=== PATIENT | female | born 1955 | race Caucasian/White ===

== ENCOUNTER 2018-12-12 13:35 | Observation (INO) | payer OTHER ==
[2018-12-12] MEDS ORDERED: ASPIRIN 81 MG PO STA (14:23)
--- NOTE | 2018-12-12 14:39 | ED ---
General Adult HPI - General Chief complaint: Seizure Stated complaint: Seizure Time Seen by Provider: 12/12/18 13:40 Source: patient, EMS, RN notes reviewed Mode of arrival: EMS Limitations: no limitations, altered mental status - History of Present Illness Initial comments: This is a 63-year-old female who presents emergency Department with a past [facility] history of cardiac disease and has a pacemaker defibrillator. Patient was at the pharmacy when she passed out the states states prior to her passing out she shook a little bit for a few seconds but then after that was not shaking. He wasn't sure if that shaking indicated a seizure but she has no seizure history. Patient currently complains of chest pressure no shortness of breath or palpitations. Patient denies any diaphoretic episode. Patient denies currently being lightheaded or dizzy. Patient states prior to the event she was not lightheaded. Patient did not hit her head she was set down gently according to the . - Related Data Home Medications Medication Instructions Recorded Confirmed Atorvastatin [Lipitor] 40 mg PO DAILY 12/12/18 12/12/18 Famotidine [Pepcid] 20 mg PO BID 12/12/18 12/12/18 Furosemide [Lasix] 20 mg PO DAILY 12/12/18 12/12/18 Insulin Glargine,Hum.rec.anlog 65 unit SQ HS 12/12/18 12/12/18 [Basaglar Kwikpen U-100] Insulin Lispro [Admelog Solostar] 10 unit SQ AC-TID 12/12/18 12/12/18 Lisinopril [Zestril] 10 mg PO DAILY 12/12/18 12/12/18 Metoprolol Succinate (ER) [Toprol 50 mg PO DAILY 12/12/18 12/12/18 Xl] Sertraline HCl [Zoloft] 50 mg PO DAILY 12/12/18 12/12/18 Allergies Allergy/AdvReac Type Severity Reaction Status Date / Time No Known Allergies Allergy Verified 12/12/18 13:45 Review of Systems ROS Statement: Those systems with pertinent positive or pertinent negative responses have been documented in the HPI. ROS Other: All systems not noted in ROS Statement are negative. Past Medical History Past Medical History: Diabetes Mellitus, Hypertension Additional Past Medical History / Comment(s): stroke, pt and pts very poor historian History of Any Multi-Drug Resistant Organisms: None Reported Past Surgical History: Tubal Ligation Smoking Status: Never smoker Past Alcohol Use History: None Reported Past Drug Use History: None Reported General Exam - General Exam Comments Initial Comments: GENERAL: Patient is well-developed and well-nourished. Patient is nontoxic and well- hydrated and is in mild distress. ENT: Neck is soft and supple. No significant lymphadenopathy is noted. Oropharynx is clear. Moist mucous membranes. Neck has full range of motion without eliciting any pain. EYES: The sclera were anicteric and conjunctiva were pink and moist. Extraocular movements were intact and pupils were equal round and reactive to light. Eyelids were unremarkable. PULMONARY: Unlabored respirations. Good breath sounds bilaterally. No audible rales rhonchi or wheezing was noted. CARDIOVASCULAR: There is a regular rate and rhythm without any murmurs gallops or rubs. ABDOMEN: Soft and nontender with normal bowel sounds. SKIN: Skin is clear with no lesions or rashes and otherwise unremarkable. NEUROLOGIC: Patient is alert and oriented x3. Cranial nerves II through XII are grossly intact. Motor and sensory are also intact. Normal speech, volume and content. Symmetrical smile. MUSCULOSKELETAL: Normal extremities with adequate strength and full range of motion. No lower extremity swelling or edema. No calf tenderness. LYMPHATICS: No significant lymphadenopathy is noted PSYCHIATRIC: Normal psychiatric evaluation. Limitations: no limitations, altered mental status Course Vital Signs 12/12/18 13:39 Temperature 98.9 F Pulse Rate 91 Respiratory 18 Rate Blood Pressure 160/77 O2 Sat by Pulse 95 Oximetry Medical Decision Making - Medical Decision Making EKG shows normal sinus rhythm at 69 bpm CA interval is 164 QRS 106 QT interval is 438 QTC is 469. There is no ST segment elevation or depression. CT of the brain shows no acute abnormality questionable mastoiditis however the patient has no pain in that area and even on palpation has no pain. CT of the chest shows no pulmonary embolism. I spoke with Dr. Steele he agreed to admit the patient admitted the patient wrote admitting orders. - Lab Data Result diagrams: 12/12/18 14:15 12/12/18 14:15 Lab Results 12/12/18 12/12/18 12/12/18 Range/Units 14:15 14:15 14:15 WBC 8.8 (3.8-10.6) k/uL RBC 4.16 (3.80-5.40) m/uL Hgb 13.1 (11.4-16.0) gm/dL Hct 38.8 (34.0-46.0) % MCV 93.2 (80.0-100.0) fL MCH 31.5 (25.0-35.0) pg MCHC 33.8 (31.0-37.0) g/dL RDW 13.5 (11.5-15.5) % Plt Count 230 (150-450) k/uL Neutrophils % 81 % Lymphocytes % 12 % Monocytes % 4 % Eosinophils % 2 % Basophils % 0 % Neutrophils # 7.1 (1.3-7.7) k/uL Lymphocytes # 1.0 (1.0-4.8) k/uL Monocytes # 0.4 (0-1.0) k/uL Eosinophils # 0.2 (0-0.7) k/uL Basophils # 0.0 (0-0.2) k/uL PT 10.7 (9.0-12.0) sec INR 1.0 (<1.2) APTT 20.6 L (22.0-30.0) sec D-Dimer 2.21 H (<0.60) mg/L FEU Sodium 138 (137-145) mmol/L Potassium 4.1 (3.5-5.1) mmol/L Chloride 102 (98-107) mmol/L Carbon Dioxide 21 L (22-30) mmol/L Anion Gap 15 mmol/L BUN 18 H (7-17) mg/dL Creatinine 0.86 (0.52-1.04) mg/dL Est GFR (CKD-EPI)AfAm 83 (>60 ml/min/1.73 sqM) Est GFR (CKD-EPI)NonAf 72 (>60 ml/min/1.73 sqM) Glucose 218 H (74-99) mg/dL Calcium 9.5 (8.4-10.2) mg/dL Magnesium 1.5 L (1.6-2.3) mg/dL Total Bilirubin 0.5 (0.2-1.3) mg/dL AST 44 H (14-36) U/L ALT 31 (9-52) U/L Alkaline Phosphatase 78 (38-126) U/L Troponin I (0.000-0.034) ng/mL NT-Pro-B Natriuret Pep pg/mL Total Protein 7.6 (6.3-8.2) g/dL Albumin 4.3 (3.5-5.0) g/dL 12/12/18 12/12/18 Range/Units 14:15 14:15 WBC (3.8-10.6) k/uL RBC (3.80-5.40) m/uL Hgb (11.4-16.0) gm/dL Hct (34.0-46.0) % MCV (80.0-100.0) fL MCH (25.0-35.0) pg MCHC (31.0-37.0) g/dL RDW (11.5-15.5) % Plt Count (150-450) k/uL Neutrophils % % Lymphocytes % % Monocytes % % Eosinophils % % Basophils % % Neutrophils # (1.3-7.7) k/uL Lymphocytes # (1.0-4.8) k/uL Monocytes # (0-1.0) k/uL Eosinophils # (0-0.7) k/uL Basophils # (0-0.2) k/uL PT (9.0-12.0) sec INR (<1.2) APTT (22.0-30.0) sec D-Dimer (<0.60) mg/L FEU Sodium (137-145) mmol/L Potassium (3.5-5.1) mmol/L Chloride (98-107) mmol/L Carbon Dioxide (22-30) mmol/L Anion Gap mmol/L BUN (7-17) mg/dL Creatinine (0.52-1.04) mg/dL Est GFR (CKD-EPI)AfAm (>60 ml/min/1.73 sqM) Est GFR (CKD-EPI)NonAf (>60 ml/min/1.73 sqM) Glucose (74-99) mg/dL Calcium (8.4-10.2) mg/dL Magnesium (1.6-2.3) mg/dL Total Bilirubin (0.2-1.3) mg/dL AST (14-36) U/L ALT (9-52) U/L Alkaline Phosphatase (38-126) U/L Troponin I <0.012 (0.000-0.034) ng/mL NT-Pro-B Natriuret Pep 160 pg/mL Total Protein (6.3-8.2) g/dL Albumin (3.5-5.0) g/dL Disposition Clinical Impression: Chest pain, Syncope and collapse Disposition: ADMITTED IP TO THIS HOSP Referrals: Mj Elizabeth MD [Primary Care Provider] - 1-2 days Time of Disposition: 16:28
[2018-12-12 14:45] LABS: Basophils % (A) 0 %; Eosinophils # (A) 0.2 k/uL (0-0.7); Eosinophils % (A) 2 %; HCT 38.8 % (34.0-46.0); HGB 13.1 gm/dL (11.4-16.0); Lymphocytes % (A) 12 %; MCH 31.5 pg (25.0-35.0); MCHC 33.8 g/dL (31.0-37.0); MCV 93.2 fL (80.0-100.0); Mean Platelet Volume 8.5; Monocytes # (A) 0.4 k/uL (0-1.0); Monocytes % (A) 4 %; Neutrophils # (A) 7.1 k/uL (1.3-7.7); Neutrophils % (A) 81 %; Platelet Count 230 k/uL (150-450); RBC 4.16 m/uL (3.80-5.40); RDW 13.5 % (11.5-15.5); WBC 8.8 k/uL (3.8-10.6)
[2018-12-12 14:54] LABS: Albumin 4.3 g/dL (3.5-5.0); Calcium 9.5 mg/dL (8.4-10.2); Magnesium 1.5 mg/dL (1.6-2.3); Potassium 4.1 mmol/L (3.5-5.1); Total Bilirubin 0.5 mg/dL (0.2-1.3); Total Protein 7.6 g/dL (6.3-8.2)
[2018-12-12 15:07] LABS: Prothrombin Time 10.7 sec (9.0-12.0)
--- NOTE | 2018-12-12 15:08 | XR ---
EXAMINATION TYPE: XR chest 2V DATE OF EXAM: 12/12/2018 COMPARISON: NONE HISTORY: Seizure today. Chest pain. TECHNIQUE: Frontal and lateral views of the chest are obtained. FINDINGS: Somewhat low lung volumes are present. There is no focal air space opacity, pleural effusi on, or pneumothorax seen. The cardiac silhouette size is mildly enlarged. Loop recorder overlies the left anterior chest wall. Bridging spurs in thoracic spine are present.. IMPRESSION: Mild cardiomegaly without acute pulmonary process.
--- NOTE | 2018-12-12 15:08 | CT ---
EXAMINATION TYPE: CT brain wo con DATE OF EXAM: 12/12/2018 COMPARISON: None HISTORY: pain CT DLP: 1134.4 mGycm Automated exposure control for dose reduction was used. FINDINGS: There is no acute intracranial hemorrhage, mass effect, or midline shift identified. Large area of en cephalomalacia involving the left frontal lobe compatible with remote infarct. Mild generalized degen erative change. Calvarium intact. Low-attenuation the white matter is nonspecific but suggestive of r emote microvascular ischemia. Atherosclerotic change of the vasculature noted. Changes of right-sided mastoiditis noted. IMPRESSION: Degenerative and remote ischemic change as discussed above. Correlate for right-sided mastoiditis.
[2018-12-12 15:18] LABS: D-Dimer 2.21 mg/L FEU (<0.60); Partial Thromboplastin Time 20.6 sec (22.0-30.0)
--- NOTE | 2018-12-12 16:11 | CT ---
EXAMINATION TYPE: CT chest angio for PE DATE OF EXAM: 12/12/2018 COMPARISON: Chest x-ray 819 HISTORY: Chest pain. CT DLP: 395.5 mGycm Automated exposure control for dose reduction was used. CONTRAST: CT Chest for pulmonary embolism performed with with IV Contrast, patient injected with 100 mL of Isov ue 370. FINDINGS: LUNGS: Groundglass changes are seen within both lungs. There is motion artifact. No pleural effusion or pneumothorax. MEDIASTINUM: There is limitation with regard to the right hilum secondary to artifact. There is [employer] enhancement of the visualized pulmonary artery and its branches, there is no CT evidence for pulmonary embolism. There are no greater than 1 cm hilar or mediastinal lymph nodes. No pericardia l effusion is seen. OTHER: Opacity seen in the soft tissues of the left chest correlate clinically. Hypertrophic and deg enerative change of the spine. IMPRESSION: 1. No central pulmonary embolism. There is limitation with regard to the right secondary and distal b ranches particularly in the right hilum. No definite filling defects seen to suggest acute pulmonary embolism.
[2018-12-12] MEDS ORDERED: NITROGLYCERIN SL TABS 0.4 MG TAB SUBLINGUAL PRN (16:28)
--- NOTE | 2018-12-12 17:30 | XR ---
EXAMINATION TYPE: XR ankle complete LT DATE OF EXAM: 12/12/2018 COMPARISON: NONE HISTORY: Foot and ankle pain TECHNIQUE: 3 views FINDINGS: There are plantar and Achilles calcaneal spurs. Ankle mortise is anatomic. There is nondisp laced fracture of the base of the fifth metatarsal . IMPRESSION: Fifth metatarsal nondisplaced fracture. Calcaneal spurring.
--- NOTE | 2018-12-12 17:31 | XR ---
Left foot 3 views. History pain. Comparison none. FINDINGS: There is an acute nondisplaced transverse fracture across the base of the fifth metatarsal. Fragment measures 1.5 cm. There is moderate plantar and Achilles calcaneal spur formation. IMPRESSION: Acute nondisplaced fracture base of fifth metatarsal.
[2018-12-12] MEDS: NITROGLYCERIN OINT 1 INCH/GM PACKET TOPICAL SCH (18:39)
--- NOTE | 2018-12-12 18:51 | ED ---
Medical Decision Making - Medical Decision Making Patient had a nondisplaced fracture of the fifth metatarsal on the left was noted on x-ray. I did place a splint. Orthopedics will be consulted - Lab Data Result diagrams: 12/12/18 14:15 12/12/18 14:15 Lab Results 12/12/18 12/12/18 12/12/18 Range/Units 14:15 14:15 14:15 WBC 8.8 (3.8-10.6) k/uL RBC 4.16 (3.80-5.40) m/uL Hgb 13.1 (11.4-16.0) gm/dL Hct 38.8 (34.0-46.0) % MCV 93.2 (80.0-100.0) fL MCH 31.5 (25.0-35.0) pg MCHC 33.8 (31.0-37.0) g/dL RDW 13.5 (11.5-15.5) % Plt Count 230 (150-450) k/uL Neutrophils % 81 % Lymphocytes % 12 % Monocytes % 4 % Eosinophils % 2 % Basophils % 0 % Neutrophils # 7.1 (1.3-7.7) k/uL Lymphocytes # 1.0 (1.0-4.8) k/uL Monocytes # 0.4 (0-1.0) k/uL Eosinophils # 0.2 (0-0.7) k/uL Basophils # 0.0 (0-0.2) k/uL PT 10.7 (9.0-12.0) sec INR 1.0 (<1.2) APTT 20.6 L (22.0-30.0) sec D-Dimer 2.21 H (<0.60) mg/L FEU Sodium 138 (137-145) mmol/L Potassium 4.1 (3.5-5.1) mmol/L Chloride 102 (98-107) mmol/L Carbon Dioxide 21 L (22-30) mmol/L Anion Gap 15 mmol/L BUN 18 H (7-17) mg/dL Creatinine 0.86 (0.52-1.04) mg/dL Est GFR (CKD-EPI)AfAm 83 (>60 ml/min/1.73 sqM) Est GFR (CKD-EPI)NonAf 72 (>60 ml/min/1.73 sqM) Glucose 218 H (74-99) mg/dL Calcium 9.5 (8.4-10.2) mg/dL Magnesium 1.5 L (1.6-2.3) mg/dL Total Bilirubin 0.5 (0.2-1.3) mg/dL AST 44 H (14-36) U/L ALT 31 (9-52) U/L Alkaline Phosphatase 78 (38-126) U/L Troponin I (0.000-0.034) ng/mL NT-Pro-B Natriuret Pep pg/mL Total Protein 7.6 (6.3-8.2) g/dL Albumin 4.3 (3.5-5.0) g/dL 12/12/18 12/12/18 Range/Units 14:15 14:15 WBC (3.8-10.6) k/uL RBC (3.80-5.40) m/uL Hgb (11.4-16.0) gm/dL Hct (34.0-46.0) % MCV (80.0-100.0) fL MCH (25.0-35.0) pg MCHC (31.0-37.0) g/dL RDW (11.5-15.5) % Plt Count (150-450) k/uL Neutrophils % % Lymphocytes % % Monocytes % % Eosinophils % % Basophils % % Neutrophils # (1.3-7.7) k/uL Lymphocytes # (1.0-4.8) k/uL Monocytes # (0-1.0) k/uL Eosinophils # (0-0.7) k/uL Basophils # (0-0.2) k/uL PT (9.0-12.0) sec INR (<1.2) APTT (22.0-30.0) sec D-Dimer (<0.60) mg/L FEU Sodium (137-145) mmol/L Potassium (3.5-5.1) mmol/L Chloride (98-107) mmol/L Carbon Dioxide (22-30) mmol/L Anion Gap mmol/L BUN (7-17) mg/dL Creatinine (0.52-1.04) mg/dL Est GFR (CKD-EPI)AfAm (>60 ml/min/1.73 sqM) Est GFR (CKD-EPI)NonAf (>60 ml/min/1.73 sqM) Glucose (74-99) mg/dL Calcium (8.4-10.2) mg/dL Magnesium (1.6-2.3) mg/dL Total Bilirubin (0.2-1.3) mg/dL AST (14-36) U/L ALT (9-52) U/L Alkaline Phosphatase (38-126) U/L Troponin I <0.012 (0.000-0.034) ng/mL NT-Pro-B Natriuret Pep 160 pg/mL Total Protein (6.3-8.2) g/dL Albumin (3.5-5.0) g/dL Disposition Clinical Impression: Chest pain, Syncope and collapse, Nondisplaced fracture of fifth left metatarsal bone Disposition: ADMITTED IP TO THIS HOSP Procedures - Orthopedic Splinting/Casting Injury #1 Lower Extremity Injury Location: foot Lower Extremity Immobilizer: posterior splint (Patient had a left fifth metatarsal fracture I placed a 5 x 30 posterior splint short leg. There was good capillary refill good neurovascular exam afterwards.)
[2018-12-12] MEDS ORDERED: ACETAMINOPHEN TAB 325 MG TAB PO STA (19:47)
[2018-12-12 20:14] LABS: Glucose,Whole Blood 250 mg/dL (75-99)
[2018-12-12] MEDS: FAMOTIDINE 20 MG TAB PO SCH (22:13)
[2018-12-12] MEDS: HYDROcodone/APAP 7.5-325MG 1 EACH TAB PO PRN (22:13)
[2018-12-12] MEDS: INSULIN DETEMIR (LEVEMIR) 100 UNIT/ML SYR SQ SCH (22:14)
[2018-12-13] MEDS: NITROGLYCERIN OINT 1 INCH/GM PACKET TOPICAL SCH ×2 (00:05→05:30)
[2018-12-13] MEDS: HYDROcodone/APAP 7.5-325MG 1 EACH TAB PO PRN ×5 (03:12→22:03)
[2018-12-13 03:39] LABS: Cholesterol 151 mg/dL (<200); HDL Cholesterol 44 mg/dL (40-60); LDL Cholesterol,Calculated 74 mg/dL (0-99); Triglycerides 163 mg/dL (<150)
[2018-12-13 06:51] LABS: Glucose,Whole Blood 86 mg/dL (75-99)
--- NOTE | 2018-12-13 08:53 | P.CNOR ---
<Rin Vazquez Karel - Last Filed: 12/13/18 13:21> History of Present Illness - [facility] Consult date: 12/13/18 Consult reason: fracture (Left 5th metatarsal base fracture) History of present illness: The patient is a 63-year-old female who presented to the emergency department yesterday after having a syncopal episode at her pharmacy. The patient lowered her gently to the ground. There is no obvious injury to her left foot but she noticed pain when she came to after the syncopal event. x-rays were taken in the emergency department she was found to have a nondisplaced Frederick fracture. Orthopedics is consulted for further evaluation and the patient was admitted for observation by internal medicine and cardiology. Today, the patient states she is feeling well but having severe pain in her left foot. She recently had a pain pill but it hasn't started working yet. The patient was placed in a splint yesterday and the splint is currently comfortable. She is unable to bear weight on the foot due to the pain. Review of Systems Constitutional: Denies chills, Denies fatigue, Denies fever Cardiovascular: Reports syncope, Denies chest pain, Denies shortness of breath Respiratory: Denies cough Gastrointestinal: Denies diarrhea, Denies nausea, Denies vomiting Musculoskeletal: left: foot pain, foot stiffness, foot swelling Past Medical History Past Medical History: Diabetes Mellitus, Hypertension Additional Past Medical History / Comment(s): stroke, pt and pts very poor historian, [facility] History of Any Multi-Drug Resistant Organisms: None Reported Past Surgical History: Tubal Ligation Past Anesthesia/Blood Transfusion Reactions: No Reported Reaction Past Psychological History: No Psychological Hx Reported Smoking Status: Never smoker Past Alcohol Use History: None Reported Past Drug Use History: None Reported Medications and Allergies Home Medications Medication Instructions Recorded Confirmed Type Atorvastatin [Lipitor] 40 mg PO DAILY 12/12/18 12/12/18 History Famotidine [Pepcid] 20 mg PO BID 12/12/18 12/12/18 History Furosemide [Lasix] 20 mg PO DAILY 12/12/18 12/12/18 History Insulin Glargine,Hum.rec.anlog 65 unit SQ HS 12/12/18 12/12/18 History [Basaglar Kwikpen U-100] Insulin Lispro [Admelog Solostar] 10 unit SQ AC-TID 12/12/18 12/12/18 History Lisinopril [Zestril] 10 mg PO DAILY 12/12/18 12/12/18 History Metoprolol Succinate (ER) [Toprol 50 mg PO DAILY 12/12/18 12/12/18 History Xl] Sertraline HCl [Zoloft] 50 mg PO DAILY 12/12/18 12/12/18 History Allergies Allergy/AdvReac Type Severity Reaction Status Date / Time latex AdvReac Rash/Hives Verified 12/12/18 18:39 Physical Examination Ecchymosis, swelling, and point tenderness around 5th metatarsal base. Able to move toes well in flexion and extension but is limited due to pain. Sensation intact to light touch over anterior, posterior, medial, and lateral thigh, also intact over anterior, posterior, medial, and lateral leg. Dorsalis pedis and posterior tibial pulses are 2+. Capillary refill is less than 2 seconds. No t rophic skin changes. No ulceration. Skin is healthy, pink, and warm. Skin intact. Results - Labs Labs: Abnormal Lab Results - Last 24 Hours (Table) 12/12/18 12/12/18 12/12/18 Range/Units 14:15 14:15 14:15 APTT 20.6 L (22.0-30.0) sec D-Dimer 2.21 H (<0.60) mg/L FEU Carbon Dioxide 21 L (22-30) mmol/L BUN 18 H (7-17) mg/dL Glucose 218 H (74-99) mg/dL POC Glucose (mg/dL) (75-99) mg/dL Magnesium 1.5 L (1.6-2.3) mg/dL AST 44 H (14-36) U/L Triglycerides 163 H (<150) mg/dL 12/12/18 Range/Units 20:13 APTT (22.0-30.0) sec D-Dimer (<0.60) mg/L FEU Carbon Dioxide (22-30) mmol/L BUN (7-17) mg/dL Glucose (74-99) mg/dL POC Glucose (mg/dL) 250 H (75-99) mg/dL Magnesium (1.6-2.3) mg/dL AST (14-36) U/L Triglycerides (<150) mg/dL H & H 12/12/18 Range/Units 14:15 Hgb 13.1 (11.4-16.0) gm/dL Hct 38.8 (34.0-46.0) % Coagulation 12/12/18 Range/Units 14:15 INR 1.0 (<1.2) Result Diagrams: 12/12/18 14:15 12/12/18 14:15 - Diagnostic results Ankle/Foot x-ray: image reviewed (Two views of the left foot reveal a nondisplaced fifth metatarsal base fracture.) Assessment and Plan (1) Nondisplaced fracture of fifth left metatarsal bone Current Visit: Yes Status: Acute Code(s): S92.355A - NONDISP FX OF FIFTH METATARSAL BONE, LEFT FOOT, INIT SNOMED Code(s): 231416050 (2) Syncope and collapse Current Visit: Yes Status: Acute Code(s): R55 - SYNCOPE AND COLLAPSE SNOMED Code(s): 091307671 Plan: the clinical and x-ray findings were discussed with the patient. The case was also discussed with Dr. Perez. We are recommending a premium equalizer boot and weightbearing as tolerated. The patient will also be prescribed a walker to aid in ambulation. She will recheck in [address] Perez in our office. From an orthopedic standpoint, the patient may be discharged home once boot and walker are obtained. Continue ice and elevation of the foot. <Saúl Perez - Last Filed: 12/13/18 14:50> Results - Labs Labs: Abnormal Lab Results - Last 24 Hours (Table) 12/12/18 12/12/18 12/12/18 Range/Units 14:15 14:15 14:15 APTT 20.6 L (22.0-30.0) sec D-Dimer 2.21 H (<0.60) mg/L FEU Carbon Dioxide 21 L (22-30) mmol/L BUN 18 H (7-17) mg/dL Glucose 218 H (74-99) mg/dL POC Glucose (mg/dL) (75-99) mg/dL Magnesium 1.5 L (1.6-2.3) mg/dL AST 44 H (14-36) U/L Triglycerides 163 H (<150) mg/dL 12/12/18 12/13/18 Range/Units 20:13 11:57 APTT (22.0-30.0) sec D-Dimer (<0.60) mg/L FEU Carbon Dioxide (22-30) mmol/L BUN (7-17) mg/dL Glucose (74-99) mg/dL POC Glucose (mg/dL) 250 H 169 H (75-99) mg/dL Magnesium (1.6-2.3) mg/dL AST (14-36) U/L Triglycerides (<150) mg/dL H & H 12/12/18 Range/Units 14:15 Hgb 13.1 (11.4-16.0) gm/dL Hct 38.8 (34.0-46.0) % Coagulation 12/12/18 Range/Units 14:15 INR 1.0 (<1.2) Result Diagrams: 12/12/18 14:15 12/12/18 14:15 Assessment and Plan Plan: Discussed with GERI Vazquez and agree with above. Patient was subsequently seen and examined by myself as well. She states the whole foot is painful and she is very anxious about the injury. She recalls feeling poorly but doesn't recall the specific circumstances regarding how she injured her foot. She normally ambulates with cane and walker at home. Assessment: 1. Nondisplaced type I Frederick fracture 2. Multiple medical comorbidities P: I discussed the clinical and radiographic findings with the patient. I explained that this is a stable fracture pattern. Recommended weightbearing as tolerated in the boot. She remained may remove this for showers and open it at rest to apply ice. We will see her in the office for follow-up evaluation with repeat x-rays in 2 weeks. She was instructed to call the office sooner if she expresses any problems or concerns. Thank you for allowing me to participate in the care of this patient. Saúl Perez D.O. [facility]
[2018-12-13] MEDS ORDERED: METOPROLOL SUCCINATE (ER) 50 MG TAB.ER.24H PO SCH (09:00)
[2018-12-13] MEDS: INSULIN ASPART (NovoLOG) 100 UNIT/ML VIAL SQ SCH ×5 (09:49→22:03)
--- NOTE | 2018-12-13 10:07 | P.CRDCN ---
History of Present Illness History of present illness: This is April Friedman PA-C dictating a consult on this patient The patient was interviewed and examined by me as well as by Dr. Stevens Case discussed with Dr. Stevens and he agrees with the plan of care IMPRESSION / ASSESSMENT: Syncope associated with trauma, etiology unknown, possibly secondary to arrhythmia versus pulmonary embolism versus seizure Elevated d-dimer, CT is limited due to motion artifact Orthostatic hypotension, orthostatic vital signs positive, possible dysautonomia History of Hypertension Diabetes PLAN: Discontinue Nitropaste, drop metoprolol 25 mg daily to avoid hypotension, Recommend further imaging to rule out pulmonary embolism, defer to internal medicine Obtain 2-D echo and Doppler studies to assess cardiac structure and function Interrogate loop Monitor telemetry for any arrhythmias HPI Patient is a 63-year-old female with a past medical history of hypertension and diabetes who presented to the emergency department after syncopal episode. Patient does not recall the exact of her syncopal episode. The last thing she remembers was being at the pharmacy with her when she began to experience chest discomfort which she described as "a ton of bricks on her chest". She also felt a little shaky. Denies palpitations. She states her told her that she was shaking and foaming at the mouth. Her was not at the bedside to provide a history for me. She only had coffee that morning but did not believe that her blood sugar was low. Patient is a poor historian. She denies ever having an episode like this before or having a history of seizures but does have a history of possible strokes which she is unable to provide more details about. She also has a loop monitor. Believes she got it about 4 years ago. Denies personal history of blood clots or known family history of blood clots. Believes her mother and father may have had heart attacks but is unsure. On presentation to the emergency department her blood pressure was 160/77, pulse was 91. EKG showed sinus mechanism, no ST changes noted. Labs significant for elevated d-dimer at 2.21. troponins normal 3. Chest CTA was limited due to motion artifact but showed no definite filling defects centrally. Head CT showed a large area of encephalomalacia compatible with remote infarct and nonspecific white matter changes suggestive of remote microvascular ischemia. Patient seen and examined resting comfortably in bed. States she does still have a little chest heaviness in her chest is sore. She is mildly short of breath. Denies dizziness lightheadedness or palpitations. Also states both of her legs hurt because she fell on them. ROS: No fevers, chills or rigors, no cough, phlegm or expectoration, no nausea, vomiting or diarrhea, no hematuria, dysuria, Positive for pain in bilateral legs after falling Positive for history of stroke no skin lesions. EXAMINATION: Temperature 97.7F, pulse 74, respirations 18, blood pressure 137/71, oxygen saturation 92% on room air Orthostatic vital signs positive, systolic blood pressure dropped from 150 to 130s from lying to sitting up Patient seen and examined resting in bed, no acute distress Lungs clear to auscultation bilaterally, no wheezing, rhonchi or crackles appreciated Heart is regular, very soft systolic murmur appreciated Anterior Chest is diffusely tender to palpation splint on left leg, no edema noted in the right leg, mild tenderness to palpation diffusely on the right leg No elevated JVD noted REVIEW OF LABS, ECG & MEDICAL DATA WBC 8.8, hemoglobin 13.1, potassium 4.1, BUN 18, creatinine 0.86 D-dimer elevated at 2.21 Troponins normal 3 Total cholesterol 151, triglycerides 163, LDL 74, HDL 44 Chest x-ray negative for acute pulmonary process Head CT showed a large area of encephalomalacia compatible with remote infarct and nonspecific white matter changes suggestive of remote microvascular ischemia, no acute intracranial hemorrhage, mass effect or midline shift Chest CT showed no central pulmonary embolism, limited views due to motion artifact, no definite filling defects seen EKG showed sinus mechanism with poor R-wave progression Left foot x-ray shows acute nondisplaced fracture of the base of the fifth metatarsal Past Medical History Past Medical History: Diabetes Mellitus, Hypertension Additional Past Medical History / Comment(s): stroke, pt and pts very poor historian, [facility] History of Any Multi-Drug Resistant Organisms: None Reported Past Surgical History: Tubal Ligation Past Anesthesia/Blood Transfusion Reactions: No Reported Reaction Past Psychological History: No Psychological Hx Reported Smoking Status: Never smoker Past Alcohol Use History: None Reported Past Drug Use History: None Reported Medications and Allergies Home Medications Medication Instructions Recorded Confirmed Type Atorvastatin [Lipitor] 40 mg PO DAILY 12/12/18 12/12/18 History Famotidine [Pepcid] 20 mg PO BID 12/12/18 12/12/18 History Furosemide [Lasix] 20 mg PO DAILY 12/12/18 12/12/18 History Insulin Glargine,Hum.rec.anlog 65 unit SQ HS 12/12/18 12/12/18 History [Basaglar Kwikpen U-100] Insulin Lispro [Admelog Solostar] 10 unit SQ AC-TID 12/12/18 12/12/18 History Lisinopril [Zestril] 10 mg PO DAILY 12/12/18 12/12/18 History Metoprolol Succinate (ER) [Toprol 50 mg PO DAILY 12/12/18 12/12/18 History Xl] Sertraline HCl [Zoloft] 50 mg PO DAILY 12/12/18 12/12/18 History Allergies Allergy/AdvReac Type Severity Reaction Status Date / Time latex AdvReac Rash/Hives Verified 12/12/18 18:39 Physical Exam Vitals: Vital Signs Temp Pulse Pulse Pulse Pulse Resp BP 12/13/18 08:00 97.7 F 65 74 89 18 12/13/18 03:58 98.1 F 65 16 12/12/18 23:41 98.5 F 63 18 12/12/18 19:47 98.4 F 61 16 12/12/18 18:29 98.2 F 70 17 12/12/18 16:54 68 18 141/74 12/12/18 13:39 98.9 F 91 18 160/77 BP BP BP Pulse Ox 12/13/18 08:00 137/71 153/72 92 L 12/13/18 03:58 148/79 97 12/12/18 23:41 130/75 98 12/12/18 19:47 145/71 96 12/12/18 18:29 141/82 97 12/12/18 16:54 96 12/12/18 13:39 95 Intake and Output 12/12/18 12/13/18 12/13/18 22:59 06:59 14:59 Other: Voiding Method Bedpan Bedpan Bedpan # Voids 1 Results 12/12/18 14:15 12/12/18 14:15 Cardiac Enzymes 12/12/18 12/12/18 12/12/18 Range/Units 14:15 14:15 20:15 AST 44 H (14-36) U/L Troponin I <0.012 <0.012 (0.000-0.034) ng/mL 12/13/18 Range/Units 01:53 AST (14-36) U/L Troponin I 0.017 (0.000-0.034) ng/mL Coagulation 12/12/18 Range/Units 14:15 PT 10.7 (9.0-12.0) sec APTT 20.6 L (22.0-30.0) sec Lipids 12/12/18 Range/Units 14:15 Triglycerides 163 H (<150) mg/dL Cholesterol 151 (<200) mg/dL HDL Cholesterol 44 (40-60) mg/dL CBC 12/12/18 Range/Units 14:15 WBC 8.8 (3.8-10.6) k/uL RBC 4.16 (3.80-5.40) m/uL Hgb 13.1 (11.4-16.0) gm/dL Hct 38.8 (34.0-46.0) % Plt Count 230 (150-450) k/uL Comprehensive Metabolic Panel 12/12/18 Range/Units 14:15 Sodium 138 (137-145) mmol/L Potassium 4.1 (3.5-5.1) mmol/L Chloride 102 (98-107) mmol/L Carbon Dioxide 21 L (22-30) mmol/L BUN 18 H (7-17) mg/dL Creatinine 0.86 (0.52-1.04) mg/dL Glucose 218 H (74-99) mg/dL Calcium 9.5 (8.4-10.2) mg/dL AST 44 H (14-36) U/L ALT 31 (9-52) U/L Alkaline Phosphatase 78 (38-126) U/L Total Protein 7.6 (6.3-8.2) g/dL Albumin 4.3 (3.5-5.0) g/dL Current Medications Generic Name Dose Route Start Last Admin Trade Name Freq PRN Reason Stop Dose Admin Hydrocodone Bitart/Acetaminophen 1 each 12/12/18 21:22 12/13/18 07:56 [place] 7.5-325 PO 1 each Q4H PRN Administration Pain Aspirin 325 mg 12/13/18 09:00 Aspirin PO DAILY NEELIMA Atorvastatin Calcium 40 mg 12/13/18 09:00 Lipitor PO DAILY [facility] Famotidine 20 mg 12/12/18 21:30 12/12/18 22:13 Pepcid PO 20 mg BID NEELIMA Administration Furosemide 20 mg 12/13/18 09:00 Lasix PO DAILY [facility] Insulin Aspart 10 unit 12/13/18 07:30 Novolog SQ AC-TID [facility] Insulin Detemir 65 unit 12/12/18 21:30 12/12/18 22:14 Levemir SQ 65 unit [facility] Administration Lisinopril 10 mg 12/13/18 09:00 Zestril PO DAILY [facility] Metoprolol Succinate 50 mg 12/13/18 09:00 Toprol Xl PO DAILY [facility] Nitroglycerin 1 inch 12/12/18 18:00 12/13/18 05:30 Nitro-Bid Oint TOPICAL Not Given Q6HR [facility] Nitroglycerin 0.4 mg 12/12/18 16:28 Nitrostat SUBLINGUAL Q5M PRN Chest Pain Sertraline HCl 50 mg 12/13/18 09:00 Zoloft PO DAILY [facility] Intake and Output 12/12/18 12/13/18 12/13/18 22:59 06:59 14:59 Other: Voiding Method Bedpan Bedpan Bedpan # Voids 1 12/12/18 14:15 12/12/18 14:15
[2018-12-13] MEDS: FAMOTIDINE 20 MG TAB PO SCH ×2 (11:20→22:03)
[2018-12-13] MEDS: ASPIRIN 325 MG TAB PO SCH (11:20)
[2018-12-13] MEDS: ATORVASTATIN 40 MG TAB PO SCH (11:20)
[2018-12-13] MEDS: SERTRALINE 50 MG TAB PO SCH (11:20)
[2018-12-13] MEDS: FUROSEMIDE 20 MG TAB PO SCH (11:20)
[2018-12-13] MEDS: LISINOPRIL 10 MG TAB PO SCH (11:20)
[2018-12-13 11:59] LABS: Glucose,Whole Blood 169 mg/dL (75-99)
--- NOTE | 2018-12-13 13:28 | P.PCN ---
Preoperative Diagnosis: Patient admitted with syncope Metatarsal fracture Orthostatic by about 20 points even upon sitting up at the edge of the bed History of low monitor implantation in [facility] Not interrogated for several years Loop monitor interrogation Loop monitor was interrogated and does not show any recent tachycardia or bradycardia arrhythmias No arrhythmias noted in the last 24-48 hours However In April 2018 she had an episode of wide complex tachycardia with a cycle length of about 360-380 beats In November 2016 she had an episode of wide couplets tachycardia of a different morphology with a cycle length of 350 ms
[2018-12-13 16:29] LABS: Glucose,Whole Blood 135 mg/dL (75-99)
[2018-12-13] MEDS ORDERED: Potassium Replacement Protocol 1 EACH MISC MISCELLANE PRN (17:44)
[2018-12-13] MEDS ORDERED: Magnesium Replacement Protocol 1 EACH MISC MISCELLANE PRN (17:44)
--- NOTE | 2018-12-13 17:57 | P.CNNES ---
History of Present Illness Consult date: 12/13/18 Reason for Consult: syncope Chief complaint: syncope History of Present Illness: REFERRING PHYSICIAN: Dr. Albert Steele HISTORY OF PRESENT ILLNESS: Thank you for allowing me to evaluate Ms. Chaparrita Danielle. Ms. Danielle is a 63-year-old woman past medical history of diabetes, hype rtension, stroke (unknown timeframe is unknown deficits at this time), loop monitor om, who presents to [facility] after a single episode. Patient is alone in the room. Per other reports, patient was on a pharmacy with her when she began to experience chest discomfort with "a ton of bricks on her chest," and felt shaky. Patient does not recall the exact episode, but she was told by her that she was shaking and foaming at the mouth. Difficult to obtain history from the patient. Denies having any recent sickness. Denies lightheadedness, dizziness, headache, nausea or vomiting. Patient complaining of pain in her legs after she fell. Patient also with a cast in her left lower extremity. PAST MEDICAL HISTORY: diabetes, hypertension, stroke PAST SURGICAL HISTORY: Tubal ligation HOME MEDICATIONS: Lisinopril 10 mg daily, insulin 10 units before meals 3 times a day, famotidine 20 mg twice a day, sertraline 50 mg daily, metoprolol 50 mg daily, Lasix 20 mg daily, atorvastatin 40 mg daily, glargine 65 units daily at bedtime ALLERGIES: Latex SOCIAL HISTORY: Never smoker. Patient denies alcohol or drug abuse history REVIEW OF SYSTEMS: The 14 systems are reviewed and no additional points are identified compared to the review of systems documented history and physical PHYSICAL EXAMINATION: VITAL SIGNS: Temperature 98.2 pulse rate 77 respiratory rate 16 blood pressure 137/71 O2 saturation 93% on room air GEN.: NAD and cooperative HEENT: NCAT, sclera without icterus NECK: Supple SKIN AND EXTREMITIES: Warm to touch, no edema NEURO: MENTAL STATUS: Patient alert and oriented to self, place, time. Able to name the current president. Speech fluent, able to name and repeat, following all commands readily. No right and left disorientation, no neglect CRANIAL NERVES II THROUGH XII: II: Pupils are equal and reactive to light symmetrically. III, IV, : No ptosis. Extraocular movements full. No nystagmus. V: Facial sensation intact from V1-3. VII. No clear facial asymmetry. VIII: Hearing intact to finger rub bilaterally. IX, X: Symmetric palate elevation. XII: Shoulder shrug intact. XII: Tongue midline without fasciculation or atrophy. MOTOR: Normal bulk/tone. No pronator drift or tremor. Strength is grossly 4+/5 throughout but limited by pain SENSORY: Intact to light touch, temperature in all 4 extremities. REFLEXES: 2+ throughout. R toes are downgoing. Unable to check L due to cast COORDINATION: Finger to nose intact. No dysmetria. GAIT: Deferred as patient reporting pain in her hips and legs from the fall. DIAGNOSTIC TESTING: LABORATORY: WBC 8.8 hemoglobin 13.1 platelets 2:30 PT 10.7 INR 1.0 d-dimer 2.21 sodium 138 potassium 4.1 chloride 102 bicarb 21 BUN 18 creatinine 0.86 glucose 218 AST 44 ALT 31 alk phos 78 troponins <0.012 BNP 160 total cholesterol 151 LDL 74 HDL 44 triglycerides 163 IMAGING: CT head without contrast 12/12/2018: Degenerative and remote ischemic changes with a large area of encephalomalacia involving the left frontal lobe compatible with infarct. Mild generalized dege nerative change. ASSESSMENT: Ms. Danielle is a 63-year-old woman past medical history of diabetes, hypertension, stroke (unknown timeframe is unknown deficits at this time), loop monitor om, who presents to [facility] after a single episode. Reportedly, patient had some shaking episode with foaming in her mouth. Patient also with a history of stroke, with CT head showing a large area of encephalomalacia in the left frontal lobe, which could be a focus for seizure a ctivity. Unclear when her stroke was. Per medical record, patient is also not on aspirin or plavix. I would assume that loop recorder was placed to look for any arrhythmia that may have been the etiology of her initial stroke. Attempted to obtain routine EEG today, but was difficult to assess patient was profusely sweating and could not attached the EEG leads, and patient continued to pick at it. RECOMMENDATIONS: 1. If we are able to get an MRI brain w/o contrast (patient with loop recorder, not sure if it's MRI compatible), will obtain MRI brain w/o contrast as routine. 2. Patient pending TTE, Doppler studies, loop interrogation, telemetry monitoring per cardiology 3. Will attempt again to get routine EEG on Sunday if patient still here. 4. Neurology will continue to follow on Sunday. Feel free to [employer] message me over the weekend if you have any questions or concerns Past Medical History Past Medical History: Diabetes Mellitus, Hypertension Additional Past Medical History / Comment(s): stroke, pt and pts very poor historian, [place] History of Any Multi-Drug Resistant Organisms: None Reported Past Surgical History: Tubal Ligation Past Anesthesia/Blood Transfusion Reactions: No Reported Reaction Past Psychological History: No Psychological Hx Reported Smoking Status: Never smoker Past Alcohol Use History: None Reported Past Drug Use History: None Reported Medications and Allergies Home Medications Medication Instructions Recorded Confirmed Type Atorvastatin [Lipitor] 40 mg PO DAILY 12/12/18 12/12/18 History Famotidine [Pepcid] 20 mg PO BID 12/12/18 12/12/18 History Furosemide [Lasix] 20 mg PO DAILY 12/12/18 12/12/18 History Insulin Glargine,Hum.rec.anlog 65 unit SQ HS 12/12/18 12/12/18 History [Basaglar Kwikpen U-100] Insulin Lispro [Admelog Solostar] 10 unit SQ AC-TID 12/12/18 12/12/18 History Lisinopril [Zestril] 10 mg PO DAILY 12/12/18 12/12/18 History Metoprolol Succinate (ER) [Toprol 50 mg PO DAILY 12/12/18 12/12/18 History Xl] Sertraline HCl [Zoloft] 50 mg PO DAILY 12/12/18 12/12/18 History Allergies Allergy/AdvReac Type Severity Reaction Status Date / Time latex AdvReac Rash/Hives Verified 12/12/18 18:39 Physical Examination - Vital Signs Vital Signs: Vital Signs Temp Pulse Pulse Pulse Pulse Resp BP 12/13/18 16:00 16 12/13/18 15:59 98.2 F 77 16 12/13/18 12:00 97.9 F 78 18 12/13/18 08:00 97.7 F 65 74 89 18 12/13/18 03:58 98.1 F 65 16 12/12/18 23:41 98.5 F 63 18 12/12/18 19:47 98.4 F 61 16 12/12/18 18:29 98.2 F 70 17 12/12/18 16:54 68 18 141/74 BP BP BP Pulse Ox 12/13/18 16:00 12/13/18 15:59 137/71 93 L 12/13/18 12:00 145/79 93 L 12/13/18 08:00 137/71 153/72 92 L 12/13/18 03:58 148/79 97 12/12/18 23:41 130/75 98 12/12/18 19:47 145/71 96 12/12/18 18:29 141/82 97 12/12/18 16:54 96 Intake and Output 12/13/18 12/13/18 12/13/18 06:59 14:59 22:59 Other: Voiding Method Bedpan Bedpan Bedpan # Voids 1 Results - Laboratory Findings CBC and BMP: 12/12/18 14:15 12/12/18 14:15 Abnormal Lab Findings: Abnormal Labs 12/12/18 12/12/18 12/12/18 14:15 14:15 14:15 APTT 20.6 L D-Dimer 2.21 H Carbon Dioxide 21 L BUN 18 H Glucose 218 H POC Glucose (mg/dL) Magnesium 1.5 L AST 44 H Triglycerides 163 H 12/12/18 12/13/18 12/13/18 20:13 11:57 16:26 APTT D-Dimer Carbon Dioxide BUN Glucose POC Glucose (mg/dL) 250 H 169 H 135 H Magnesium AST Triglycerides
--- NOTE | 2018-12-13 19:39 | ECHOF ---
Referral Reason:syncope MEASUREMENTS -------- HEIGHT: 154.9 cm WEIGHT: 72.6 kg BP: IVSd: 1.1 cm (0.6 - 1.1) LVIDd: 2.5 cm (3.9 - 5.3) LVPWd: 1.2 cm (0.6 - 1.1) IVSs: 1.7 cm LVIDs: 1.1 cm LVPWs: 1.3 cm Ao Diam: 2.3 cm (2.0 - 3.7) AV Cusp: 1.5 cm (1.5 - 2.6) LA Diam: 2.7 cm (2.7 - 3.8) MV EXCURSION: 16.659 mm (> 18.000) MV EF SLOPE: 64 mm/s (70 - 150) EPSS: 0.4 cm MV E Sg: 0.76 m/s MV DecT: 207 ms MV A Sg: 0.96 m/s MV E/A Ratio: 0.79 RAP: 5.00 mmHg RVSP: 8.15 mmHg FINDINGS -------- Sinus rhythm. This was a technically difficult study with suboptimal views. The left ventricular size is normal. There is borderline concentric left ventricular hypertrophy. Overall left ventricular systolic function is normal with, an EF between 55 - 60 %. The right ventricle is normal in size. The left atrial size is normal. The right atrial size is normal. Lumason used The aortic valve is trileaflet and appears structurally normal. The mitral valve is normal. There is trace mitral regurgitation. Trace tricuspid regurgitation present. The right ventricular systolic pressure, as measured by Dopp ler, is 8.15mmHg. The pulmonic valve was not well visualized. The aortic root size is normal. IVC Not well visulized. There is no pericardial effusion. CONCLUSIONS -------- 1. Sinus rhythm. 2. This was a technically difficult study with suboptimal views. 3. The left ventricular size is normal. 4. There is borderline concentric left ventricular hypertrophy. 5. Overall left ventricular systolic function is normal with, an EF between 55 - 60 %. 6. The right ventricle is normal in size. 7. The left atrial size is normal. 8. The right atrial size is normal. 9. Lumason used 10. The aortic valve is trileaflet and appears structurally normal. 11. The mitral valve is normal. 12. There is trace mitral regurgitation. 13. Trace tricuspid regurgitation present. 14. The right ventricular systolic pressure, as measured by Doppler, is 8.15mmHg. 15. The pulmonic valve was not well visualized. 16. The aortic root size is normal. 17. IVC Not well visulized. 18. There is no pericardial effusion. KNIFE FINISHER: Carmelina Thorpe RDCS
[2018-12-13 19:45] LABS: Glucose,Whole Blood 214 mg/dL (75-99)
--- NOTE | 2018-12-13 20:48 | HP ---
HISTORY AND PHYSICAL DATE OF SERVICE: 12/13/2018 CHIEF COMPLAINT: Syncope, possible seizure with left 5th metatarsal base fracture. HISTORY OF PRESENT ILLNESS: This 63-year-old woman with a past medical history of multiple medical problems including history of diabetes, hypertension, being followed by Dr. Glenn Shah in the outpatient setting was apparently waiting at the pharmacy. The patient apparently passed out and stated that the patient shook a little bit for a few seconds and jerking movements were noted and shaking was noted. Seizure was suspected. Patient came to [facility] and admitted for further evaluation and treatment. Evaluation also showed evidence of 5th metatarsal nondisplaced fracture. Splint was applied and Orthopedics and cardiology consultation also in progress. The cardiology performed a loop recorder interrogation which showed no significant arrhythmia in the last 24-48 hours, but in April 2018, and November 13, 2016, wide-complex tachycardia was noted. There is no history of fever, rigors, chills at this time. No chest pain, palpitations. The patient also complaining of some pressure type of chest pains in the ER. The troponins are negative. Cardiology evaluation in progress. PAST MEDICAL HISTORY: Hypertension, diabetes, history of stroke. MEDICATIONS: Prior to admission include home medications: 1. Insulin 60 units subcu q.h.s. 2. Zestril 10 mg daily. 3. Insulin lispro 10 units a.c. t.i.d. 4. Pepcid 20 mg p.o. b.i.d. 5. Zoloft 50 mg p.o. daily. 6. Toprol-XL 50 mg p.o. daily. 7. Lasix 20 mg p.o. daily. 8. Lipitor 40 mg p.o. daily. ALLERGIES: LATEX. FAMILY HISTORY: No history of heart disease or strokes in the family. SOCIAL HISTORY: No history of smoking. No history of alcohol. REVIEW OF SYSTEMS: ENT diminished vision. Diminished hearing. CARDIOVASCULAR: No angina or palpitations. RESPIRATIONS: No cough or hemoptysis. GI no nausea or vomiting. no dysuria. NERVOUS SYSTEM: No numbness or weakness. ALLERGY/IMMUNOLOGY: No asthma or hayfever. MUSCULOSKELETAL: As mentioned earlier. HEMATOLOGY/ONCOLOGY: No history of anemia. ENDOCRINE: History of diabetes mellitus. No history of hypothyroidism. CONSTITUTIONAL: As mentioned earlier. DERMATOLOGY negative. RHEUMATOLOGY: Negative. PSYCHIATRIC: As mentioned earlier. PHYSICAL EXAM: Patient is alert, oriented x3. Pulse 77, blood pressure 130/70, respirations 16, temperature 98.2, pulse ox 98% on room air. HEENT: Conjunctivae normal. Oral mucosa moist. NECK is no jugular venous distention. No lymph node enlargement. CARDIOVASCULAR: S1, S2 muffled. RESPIRATIONS: Breath sounds diminished in the bases. A few scattered rhonchi and crackles. ABDOMEN: Soft, nontender. No mass palpable. LEGS: Status post 5th metatarsal fracture. Otherwise, splint. NERVOUS SYSTEM: Higher functions as mentioned earlier. Moves all 4 limbs. No focal motor or sensory deficits. Lymphatics: No lymph nodes palpable in the neck, axillae or groin. SKIN: No ulcer. No rash. No bleeding. JOINTS: No active deforming arthropathy. LABS: Glucose 169, 135. CBC within normal limits. A D-dimer is 2.21 and glucose 250 and magnesium is 1.5. The chest CTA was also done which showed no pulmonary embolism. ASSESSMENT: 1. Syncope for evaluation possible vasovagal syncope, possibly cardiac arrhythmia, rule out seizure disorder. 2. Nondisplaced 5th metatarsal fracture on the left side. 3. Mild orthostatic hypotension. 4. Gait dysfunction. 5. Severe pain. 6. Diabetes mellitus type 2. 7. Hypertension. 8. History of stroke. 9. Increased D-dimer with no evidence of pulmonary embolism. 10.Increased AST. 11.Hypomagnesemia. RECOMMENDATIONS AND DISCUSSION: This 63-year-old gentleman who presented with multiple complex medical issues, we will monitor the patient closely. Continue the current medications, symptomatic treatment. Otherwise at this time I recommend pain medications. Cardiology consultation. Orthostatic vitals. Otherwise, I would recommend continue rest of medications. Guarded prognosis because of multiple complex medical issues. Further recommendations to follow. A copy of dictation forwarded to Dr. Pablo Elizabeth, who is the primary physician. MMODL / IJN: [id number] /
[2018-12-13] MEDS: INSULIN DETEMIR (LEVEMIR) 100 UNIT/ML SYR SQ SCH (22:04)
[2018-12-14] MEDS: HYDROcodone/APAP 7.5-325MG 1 EACH TAB PO PRN (02:50)
[2018-12-14 05:21] LABS: Appearance,Urine Cloudy (Clear); Bacteria,Urine Occasional /hpf; Bilirubin,Urine Negative (Negative); Blood,Urine Negative (Negative); Color,Urine Yellow; Glucose,Urine (UA) Negative (Negative); Hyaline Casts,Urine 12 /lpf (0-2); Ketones,Urine Negative (Negative); Leukocyte Esterase,Urine Large (Negative); Mucus,Urine Rare /hpf; Nitrite,Urine Negative (Negative); Protein,Urine Negative (Negative); RBC,Urine 3 /hpf (0-5); Specific Gravity,Urine 1.018 (1.001-1.035); Squamous Epithelial Cell,Urine 56 /hpf (0-4); Urobilinogen,Urine <2.0 mg/dL (<2.0); WBC,Urine 54 /hpf (0-5)
[2018-12-14 06:15] LABS: Basophils % (A) 1 %; Eosinophils # (A) 0.4 k/uL (0-0.7); Eosinophils % (A) 5 %; HCT 39.3 % (34.0-46.0); HGB 12.6 gm/dL (11.4-16.0); Lymphocytes # (A) 2.2 k/uL (1.0-4.8); Lymphocytes % (A) 27 %; MCH 31.3 pg (25.0-35.0); MCHC 32.2 g/dL (31.0-37.0); MCV 97.3 fL (80.0-100.0); Mean Platelet Volume 8.7; Monocytes # (A) 0.5 k/uL (0-1.0); Monocytes % (A) 6 %; Neutrophils % (A) 61 %; Platelet Count 251 k/uL (150-450); RBC 4.04 m/uL (3.80-5.40); RDW 15.2 % (11.5-15.5); WBC 8.2 k/uL (3.8-10.6)
[2018-12-14 06:27] LABS: Calcium 9.1 mg/dL (8.4-10.2); Magnesium 1.4 mg/dL (1.6-2.3); Potassium 4.5 mmol/L (3.5-5.1)
[2018-12-14 06:45] LABS: Glucose,Whole Blood 235 mg/dL (75-99)
[2018-12-14 07:22] VITALS: RESP 18
--- NOTE | 2018-12-14 08:15 | P.PN ---
Subjective Progress Note Date: 12/14/18 Principal diagnosis: Orthostatic hypotension This is a 63-year-old female patient who was admitted to the hospital with syncope. She does have a loop recorder. She was found to have orthostatic hypotension. On follow-up with her today, she is asymptomatic from the cardiac vascular standpoint of view. She does not have any symptoms of chest pain or chest discomfort or shortness of breath or any dizziness or lightheadedness. No precordial was interrogated yesterday and that showed no evidence of cardiac arrhythmia. She underwent an echocardiogram which revealed normal LV function with mild MR and mild TR. During her hospital stay, the dose of metoprolol was decreased to 25 mg daily to avoid hypotension. From the cardiac vascular standpoint overview, the patient can be discharged home. Objective - Vital Signs Vital signs: Vital Signs Temp 98.1 F 12/14/18 07:00 Pulse 96 12/14/18 07:00 Resp 18 12/14/18 07:00 BP 121/72 12/14/18 07:00 Pulse Ox 94 L 12/14/18 07:00 Intake & Output 12/13/18 12/14/18 12/14/18 18:59 06:59 18:59 Other: Voiding Method Bedpan Bedpan # Voids 1 - Constitutional General appearance: Present: no acute distress - Respiratory Respiratory: bilateral: CTA - Cardiovascular Rhythm: regular Heart sounds: normal: S1, S2 - Labs CBC & Chem 7: 12/14/18 05:58 12/14/18 05:58 Labs: Abnormal Lab Results - Last 24 Hours (Table) 12/13/18 12/13/18 12/13/18 Range/Units 11:57 16:26 19:42 BUN (7-17) mg/dL Creatinine (0.52-1.04) mg/dL Glucose (74-99) mg/dL POC Glucose (mg/dL) 169 H 135 H 214 H (75-99) mg/dL Magnesium (1.6-2.3) mg/dL Urine Appearance (Clear) Ur Leukocyte Esterase (Negative) Urine WBC (0-5) /hpf Ur Squamous Epith Cells (0-4) /hpf Urine Bacteria (None) /hpf Hyaline Casts (0-2) /lpf Urine Mucus (None) /hpf 12/14/18 12/14/18 12/14/18 Range/Units 05:00 05:58 06:44 BUN 20 H (7-17) mg/dL Creatinine 1.13 H (0.52-1.04) mg/dL Glucose 199 H (74-99) mg/dL POC Glucose (mg/dL) 235 H (75-99) mg/dL Magnesium 1.4 L (1.6-2.3) mg/dL Urine Appearance Cloudy H (Clear) Ur Leukocyte Esterase Large H (Negative) Urine WBC 54 H (0-5) /hpf Ur Squamous Epith Cells 56 H (0-4) /hpf Urine Bacteria Occasional H (None) /hpf Hyaline Casts 12 H (0-2) /lpf Urine Mucus Rare H (None) /hpf Assessment and Plan Assessment: Assessment #1 orthostatic hypotension #2 syncope probably related to orthostatic hypotension Plan #1 the patient has been asymptomatic #2 the dose of metoprolol was decreased #3 the echo showed normal LV function without significant valvular abnormalities #4 the patient can be discharged home
[2018-12-14] MEDS: ATORVASTATIN 40 MG TAB PO SCH (09:07)
[2018-12-14] MEDS: LISINOPRIL 10 MG TAB PO SCH (09:07)
[2018-12-14] MEDS: METOPROLOL SUCCINATE (ER) 25 MG TAB.ER.24H PO SCH (09:07)
[2018-12-14] MEDS: SERTRALINE 50 MG TAB PO SCH (09:07)
[2018-12-14] MEDS: FAMOTIDINE 20 MG TAB PO SCH (09:07)
[2018-12-14] MEDS: INSULIN ASPART (NovoLOG) 100 UNIT/ML VIAL SQ SCH ×7 (09:07→22:50)
[2018-12-14] MEDS: ASPIRIN 325 MG TAB PO SCH (09:07)
[2018-12-14] MEDS: FUROSEMIDE 20 MG TAB PO SCH (09:07)
[2018-12-14] MEDS: MAGNESIUM SULFATE-D5W PMX 1 GM in DEXTROSE/WATER 1 100ML.BAG IVPB SCH ×2 (09:08→10:17)
[2018-12-14 11:40] LABS: Glucose,Whole Blood 251 mg/dL (75-99)
[2018-12-14] MEDS ORDERED: FAMOTIDINE 20 MG TAB PO SCH (13:33)
[2018-12-14 16:37] LABS: Glucose,Whole Blood 138 mg/dL (75-99)
[2018-12-14] MEDS ORDERED: LEVOFLOXACIN 500MG-D5W PMX 500 MG in DEXTROSE/WATER 1 100ML.BAG IVPB SCH (18:00)
--- NOTE | 2018-12-14 19:41 | PN ---
PROGRESS NOTE DATE OF SERVICE: 12/14/2018. This 63-year-old woman was admitted with syncope and seizure, also has nondisplaced metatarsal fracture also. At this time, the patient is complaining of severe pain. Cardiology following the patient as well as Neurology. 2D echo and neurovascular workup is also done. A 2D echo showed ejection fraction about 50-60 percent. No chest pain. No palpitations. PHYSICAL EXAM: Alert and oriented x3. Pulse is 65. Blood pressure 105/66, respiration 18, temp 98 degrees, pulse ox 94% on room air. HEENT are conjunctivae normal. Oral mucosa moist. NECK is no jugular venous distention. No carotid bruit. No lymph node enlargement. CARDIOVASCULAR SYSTEMS: S1, S2 muffled. RESPIRATORY: Breath sounds diminished in the bases. A few rhonchi. No crackles. ABDOMEN: Soft, nontender. No mass palpable. LEGS are no edema. No swelling. CENTRAL NERVOUS SYSTEM: Higher functions as mentioned. Moves all four limbs. No focal motor or sensory deficits. Lymphatics: No lymph nodes palpable in the neck, axillae or groin. SKIN: No ulcers, no rashes and no bleeding. JOINTS: No active deforming arthropathy. LABS: CBC within normal limits. Creatinine is 1.13, glucose 251. UA noted. ASSESSMENT: 1. Syncope for evaluation possible vasovagal, possibly cardiac arrhythmia, rule out seizure disorder. 2. Nondisplaced 5th metatarsal fracture of the left foot with severe gait dysfunction and severe pain. 3. Mild orthostatic hypotension. 4. Gait dysfunction. 5. Severe pain. 6. Diabetes mellitus type 2. 7. Hypertension. 8. History of stroke. 9. Increased D-dimer with no evidence of pulmonary embolus. 10.Increased AST. 11.Hypomagnesemia. 12.Possible urinary tract infection. RECOMMENDATIONS AND DISCUSSION: I recommend to continue current medications, management and symptomatic treatment. I would recommend further pain control. Otherwise, I would also recommend PT/OT evaluation and rn social work evaluation for the home situation also. The situation home safety as well. DVT prophylaxis. Prognosis guarded because of multiple complex medical issues. Further recommendations to follow. Follow closely with multiple consultants. MMAVRIL / NATASHAN: [id number] /
[2018-12-14 22:39] LABS: Glucose,Whole Blood 230 mg/dL (75-99)
[2018-12-14] MEDS: HEPARIN SODIUM,PORCINE 5,000 UNIT/ML 1 ML VIAL SQ SCH (22:49)
[2018-12-14] MEDS: INSULIN DETEMIR (LEVEMIR) 100 UNIT/ML SYR SQ SCH (22:49)
[2018-12-15] MEDS: HYDROcodone/APAP 7.5-325MG 1 EACH TAB PO PRN (02:36)
[2018-12-15 06:32] VITALS: BP 114/71; PULSE 82; TEMP 98.5
[2018-12-15 07:24] LABS: Glucose,Whole Blood 236 mg/dL (75-99)
[2018-12-15 07:41] LABS: Basophils # (A) 0.1 k/uL (0-0.2); Basophils % (A) 1 %; Eosinophils # (A) 0.4 k/uL (0-0.7); Eosinophils % (A) 5 %; HCT 36.8 % (34.0-46.0); HGB 11.7 gm/dL (11.4-16.0); Lymphocytes # (A) 1.7 k/uL (1.0-4.8); Lymphocytes % (A) 24 %; MCH 30.6 pg (25.0-35.0); MCHC 31.7 g/dL (31.0-37.0); MCV 96.6 fL (80.0-100.0); Mean Platelet Volume 8.3; Monocytes # (A) 0.4 k/uL (0-1.0); Monocytes % (A) 6 %; Neutrophils # (A) 4.6 k/uL (1.3-7.7); Neutrophils % (A) 63 %; Platelet Count 225 k/uL (150-450); RBC 3.81 m/uL (3.80-5.40); RDW 13.8 % (11.5-15.5); WBC 7.3 k/uL (3.8-10.6)
[2018-12-15 07:53] LABS: Magnesium 1.6 mg/dL (1.6-2.3); Potassium 4.8 mmol/L (3.5-5.1)
[2018-12-15] MEDS: ATORVASTATIN 40 MG TAB PO SCH (08:06)
[2018-12-15] MEDS: LISINOPRIL 10 MG TAB PO SCH (08:06)
[2018-12-15] MEDS: FUROSEMIDE 20 MG TAB PO SCH (08:07)
[2018-12-15] MEDS: METOPROLOL SUCCINATE (ER) 25 MG TAB.ER.24H PO SCH (08:07)
[2018-12-15] MEDS: SERTRALINE 50 MG TAB PO SCH (08:07)
[2018-12-15] MEDS: HEPARIN SODIUM,PORCINE 5,000 UNIT/ML 1 ML VIAL SQ SCH (08:08)
[2018-12-15] MEDS: INSULIN ASPART (NovoLOG) 100 UNIT/ML VIAL SQ SCH ×4 (08:09→12:58)
[2018-12-15] MEDS: ASPIRIN 325 MG TAB PO SCH (08:11)
[2018-12-15 11:59] LABS: Glucose,Whole Blood 185 mg/dL (75-99)
--- NOTE | 2018-12-15 12:15 | P.PN ---
Subjective Progress Note Date: 12/15/18 Principal diagnosis: Orthostatic hypotension This is a 63-year-old female patient who was admitted to the hospital with syncope. She does have a loop recorder. She was found to have orthostatic hypotension. On follow-up with the patient today, 12/15/2018, the patient has been asymptomatic from a cardiovascular standpoint overview. She might be able to be discharged home. Objective - Vital Signs Vital signs: Vital Signs Temp 98.5 F 12/15/18 05:00 Pulse 82 12/15/18 05:00 Resp 18 12/15/18 05:00 BP 114/71 12/15/18 05:00 Pulse Ox 97 12/15/18 05:00 Intake & Output 12/14/18 12/15/18 12/15/18 18:59 06:59 18:59 Intake Total 1040 250 400 Balance 1040 250 400 Intake: IV 100 Levofloxacin 500Mg-D5w 100 Pmx 500 mg In Dextrose/ Water 1 100ml.bag @ 100 mls/hr IVPB Q24H PENDING SALE TO [facility] Rx#: [id number] Oral 840 250 300 Other 200 Other: Voiding Method Bedpan Bedpan # Voids 1 1 1 # Bowel Movements 0 - Constitutional General appearance: Present: no acute distress - Respiratory Respiratory: bilateral: CTA - Cardiovascular Rhythm: regular Heart sounds: normal: S1, S2 - Labs CBC & Chem 7: 12/15/18 07:17 12/15/18 07:17 Labs: Abnormal Lab Results - Last 24 Hours (Table) 12/14/18 12/14/18 12/15/18 Range/Units 16:34 22:36 07:17 Sodium 136 L (137-145) mmol/L BUN 21 H (7-17) mg/dL Glucose 241 H (74-99) mg/dL POC Glucose (mg/dL) 138 H 230 H (75-99) mg/dL 12/15/18 12/15/18 Range/Units 07:22 11:37 Sodium (137-145) mmol/L BUN (7-17) mg/dL Glucose (74-99) mg/dL POC Glucose (mg/dL) 236 H 185 H (75-99) mg/dL Assessment and Plan Assessment: Assessment #1 orthostatic hypotension #2 syncope probably related to orthostatic hypotension Plan #1 the patient has been asymptomatic #2 she might be able to be discharged home
[2018-12-15] MEDS ORDERED: LEVOFLOXACIN 500 MG TAB PO SCH (18:00)
--- NOTE | 2018-12-16 05:54 | DS ---
DISCHARGE SUMMARY DATE OF SERVICE: 12/15/2018 FINAL DIAGNOSES: 1. Syncope, possibly vasovagal. 2. Nondisplaced 5th metatarsal fracture of the left foot with severe gait dysfunction and pain, improved. 3. Mild orthostatic hypotension, improved. 4. Gait dysfunction. 5. Severe pain. 6. Diabetes mellitus type 2. 7. Hypertension. 8. History of stroke. 9. Increased D-dimer with no evidence of pulmonary embolism. 10.Increased AST. 11.Hypomagnesemia. 12.Urinary tract infection. DISCHARGE DISPOSITION: The patient will be discharged in stable condition with guarded prognosis. HISTORY OF PRESENT ILLNESS: This 63-year-old woman with a past medical history of multiple medical problems admitted with syncope and as well as fracture of the 5th metatarsal, treated symptomatically. Patient improved significantly. Patient will be discharged in stable condition with guarded prognosis. The patient was by multiple consultants including Cardiology and as well as Orthopedic Surgery. Medications were adjusted. The 2-D echo showed ejection fraction about 55% to 60%. The patient follows with Dr. Mj Elizabeth in the outpatient setting. On exam, vitals are stable. CARDIOVASCULAR: S1, S2 muffled. ABDOMEN: Soft. NERVOUS SYSTEM: No focal deficits. Left foot fracture on a splint. DISCHARGE ADVICE: 1. Diet is cardiac. 2. Activity limited until followup. Otherwise medications: 1. Solostar 10 units a.c. t.i.d. 2. Kwikpen 65 units q.h.s. that is Lantus. 3. Lasix 20 mg p.o. daily. 4. Lipitor 40 mg p.o. daily. 5. Pepcid 20 mg b.i.d. 6. Toprol XL 50 mg daily. 7. Zestril 10 mg p.o. daily. 8. Zoloft 50 mg p.o. daily. 9. Aspirin 325 mg daily. 10.Hubbard 7.5 q.4 p.r.n. Follow up with Dr. Mj Elizabeth in 1 to 2 days. Follow up with Dr. Perez as recommended. MMODL / IJN: [id number] /
== END 2018-12-15 14:25 | disposition home or self-care (01) ==
LOC: EC 13:35 → INTOOBSV 16:29 → OBSVTOIN 16:29 → 1SOBS 16:29 → 4MS4W 12-14 20:20 → UNDODISIN 12-15 14:25
PROVIDERS: ADMIT Hospitalist; ATTEND Hospitalist
DX: I95.1 Orthostatic hypotension (principal); S92.355A Nondisplaced fracture of fifth metatarsal bone, left foot, initial encounter for closed fracture; R26.9 Unspecified abnormalities of gait and mobility; E11.9 Type 2 diabetes mellitus without complications; I10 Essential (primary) hypertension; Z86.73 Personal history of transient ischemic attack (TIA), and cerebral infarction without residual deficits; R79.89 Other specified abnormal findings of blood chemistry; R74.0 Nonspecific elevation of levels of transaminase and lactic acid dehydrogenase [LDH]; E83.42 Hypomagnesemia; N39.0 Urinary tract infection, site not specified; Z79.4 Long term (current) use of insulin; Z79.899 Other long term (current) drug therapy; Z95.818 Presence of other cardiac implants and grafts; Z91.040 Latex allergy status; Z95.810 Presence of automatic (implantable) cardiac defibrillator; R07.89 Other chest pain; R61 Generalized hyperhidrosis; H91.90 Unspecified hearing loss, unspecified ear; X58.XXXA Exposure to other specified factors, initial encounter; Y92.89 Other specified places as the place of occurrence of the external cause
CPT/HCPCS: 29515; 36415; 70450; 71046; 71275; 80048; 80053; 80061; 81001; 83735; 83880; 84484; 85025; 85379; 85610; 85730; 87040; 87086; 93005; 93306; 96365; 96366; 96367; 99285